=== PATIENT | female | born 1990 | race Caucasian/White ===

== ENCOUNTER → 2019-07-23 | Outpatient (CLI) | payer BC ==
--- NOTE | 2019-07-23 16:53 | KCIC ---
MRI right ankle without contrast dated 07/23/2019. No comparison available. CLINICAL INDICATION: Right ankle pain. Pain and swelling. TECHNIQUE: Routine multiplanar multisequence MR imaging of the right ankle was performed. No contrast administered. FINDINGS: Bone marrow signal is homogeneous. No marrow edema. Talar dome is intact. No osteochondral defect. No tibiotalar joint effusion or subtalar joint effusion. Distal Achilles tendon is intact. No inflammatory changes along the Achilles peritenon. The plantar fascia is intact. Flexor tendons are intact.. Mild edema and fluid along the margin of the peroneus longus and peroneus brevis tendons laterally without focal tear. There is minimal increased signal in the tendon substance. There is also mild increased signal within the extensor digitorum angélica tendon at the level of the talar head with small amount of edema in the adjacent subcutaneous tissues. Anterior talofibular ligament and posterior talofibular ligaments are intact. Tibiofibular ligaments and calcaneal fibular ligament are intact. No apparent abnormality at the deltoid complex. IMPRESSION: 1. There is mild tenosynovitis of the peroneus longus and peroneus brevis. 2. There is also suspected mild tendinosis of the extensor digitorum longus. Correlate clinically. 3. Otherwise no evidence of internal derangement. No apparent ligament tear. Electronically signed by: Dillon Hood MD (07/23/2019 4:50 PM) [facility] [id number]
== END | disposition home or self-care (01) ==
LOC: KCIC MRI 15:52
PROVIDERS: ATTEND Family Medicine
DX: M65.871 Other synovitis and tenosynovitis, right ankle and foot (principal); M79.89 Other specified soft tissue disorders
CPT/HCPCS: 73721